=== PATIENT | male | born 1945 | race Caucasian/White ===

== ENCOUNTER 2023-09-19 12:56 | Emergency (ER) | payer OTHER ==
[~2023-09-19] VITALS: Ht 180.3 cm; Wt 90.7 kg
[2023-09-19] MEDS ORDERED: Ketorolac Tromethamine 10 MG Tab PO ONE (14:15)
== END 2023-09-19 14:47 | disposition home or self-care (01) ==
LOC: ER 12:56
DX: M79.652 Pain in left thigh (principal); M79.651 Pain in right thigh; M16.0 Bilateral primary osteoarthritis of hip; E78.5 Hyperlipidemia, unspecified; W01.0XXA Fall on same level from slipping, tripping and stumbling without subsequent striking against object, initial encounter
CPT/HCPCS: 73552; 99283-25; A9270